=== PATIENT | male | born 1955 | race African-American/Black ===

== ENCOUNTER 2016-12-30 21:36 | Emergency (ER) | payer OTHER ==
[~2016-12-30 21:36] MED LIST: ACID REFLUX MED; BAYER ASPIRIN325 M1 PO; IBUPROFEN600 M1 PO; IRON325 M1 PO; LEVAQUIN500 MG PO; NATURE'S TEARS15 ML OP; NO MEDICATION; NORVASC2.5 MG PO; SOMA350 M1 PO; TOPROL XL25 MG PO; ZANTAC150 MG PO; [UNRECOGNIZED DRUG - OTHER] PO
[2016-12-30 22:15] LABS: BASO % 0.3 % (0-2); EOS % 0.5 % (0-7); HCT-HEMATOCRIT 30.8 % (36.0-53.5); HGB-HEMOGLOBIN 10.7 gm/dl (13.5-17.0); LYMPH % 69.8 % (20-45); LYMPH ABSOLUTE COUNT 2.8 tho/cmm (0.8-4.5); MCH (MEAN CORPUSCULAR HGB) 37.3 pg (28.0-32.0); MCHC MEAN CORPUSCULAR HGB CONC 34.7 % (32.0-36.0); MCV (MEAN CELL VOLUME) 107.3 fl (82.0-96.0); MEAN PLATELET VOLUME 8.8 cmc (9.4-12.4); MONOCYTE ABSOLUTE COUNT 0.2 tho/cmm (0.0-1.2); NEUTROPHILS % 24.4 % (40-80); PLATELET COUNT 199 tho/cmm (150-450); RED BLOOD COUNT 2.87 mil/cmm (4.40-5.70); RED CELL DISTRIBUTION WIDTH 12.6 % (12.4-16.4)
[2016-12-30 22:33] LABS: ANION GAP 10 mmol/L (0-20); BLOOD UREA NITROGEN 11 mg/dl (6-24); CALCIUM 9.2 mg/dl (8.5-10.5); CARBON DIOXIDE-VENOUS 28 mmol/L (22-32); CHLORIDE 106 mmol/l (96-110); CREATININE 0.96 mg/dl (0.60-1.30); GLUCOSE 98 mg/dL (70-110); POTASSIUM 3.4 mmol/L (3.7-5.1); SODIUM 141 mmol/L (135-145); eGFR VALUE FOR BLACK >90 mL/Min
[2016-12-31] MEDS ORDERED: HYDROCODON-ACE1 EA16 PO ×2 (13:52→13:53)
[2016-12-31] MEDS ORDERED: PROTONIX40 M2 PO (13:53)
[2017-04-26] MEDS ORDERED: CATAPRES0.1 M1 (21:56)
[2017-04-26] MEDS ORDERED: COREG6.25 M1 PO (21:56)
[2017-04-26] MEDS ORDERED: [UNRECOGNIZED DRUG - OTHER] (21:57)
== END 2016-12-30 23:14 ==
LOC: EDMED 21:36
PROVIDERS: Emergency Medicine
DX: R07.89 Other chest pain (principal); K21.9 Gastro-esophageal reflux disease without esophagitis; Z79.899 Other long term (current) drug therapy

== ENCOUNTER 2016-12-31 13:45 | Emergency (ER) | payer OTHER ==
[2016-12-31] MEDS ORDERED: HYDROCODON-ACE1 EA16 PO ×2 (13:52→13:53)
[2016-12-31] MEDS ORDERED: PROTONIX40 M2 PO (13:53)
[2017-04-26] MEDS ORDERED: CATAPRES0.1 M1 (21:56)
[2017-04-26] MEDS ORDERED: COREG6.25 M1 PO (21:56)
[2017-04-26] MEDS ORDERED: [UNRECOGNIZED DRUG - OTHER] (21:57)
== END 2016-12-31 14:40 ==
LOC: EDMED 13:45
DX: R07.89 Other chest pain (principal); R00.2 Palpitations; I10 Essential (primary) hypertension; Z98.890 Other specified postprocedural states